=== PATIENT | male | born 1990 | race Caucasian/White ===

== ENCOUNTER 2016-11-19 18:01 | Emergency (ER) | payer OTHER ==
[~2016-11-19] VITALS: Ht 182.9 cm; Wt 90.7 kg
[~2016-11-19 18:01] MED LIST: AUGMENTIN 875875 MG PO; CALCITRIOL0.25 MCG PO; LEVOTHYROXINE200 MC1 PO
[2016-11-19 18:20] VITALS: BP 146/79
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
[2016-11-19] MEDS ORDERED: LEVOTHYROXINE50 MCG PO (18:44)
[2016-11-19] MEDS ORDERED: CALCITRIOL0.5 MC1 PO (18:45)
[2016-11-19] MEDS ORDERED: CALCIUM600 M2 PO (18:46)
[2016-11-19] MEDS ORDERED: PREDNISOLONE ACE5 ML OPH (19:06)
[2016-11-19] MEDS ORDERED: CYCLOGYL2 M1 OPH (19:06)
== END 2016-11-19 19:10 ==
LOC: ERH 18:01
DX: S05.12XA Contusion of eyeball and orbital tissues, left eye, initial encounter (principal); W22.8XXA Striking against or struck by other objects, initial encounter